=== PATIENT | male | born 1995 | race Caucasian/White ===

== ENCOUNTER 2017-04-05 17:07 | Emergency (ER) | payer BC ==
[~2017-04-05] VITALS: Ht 180.3 cm; Wt 91.1 kg
[~2017-04-05 17:07] MED LIST: ALBUAER2 INH; IBUP-1459 PO
[2017-04-05 17:09] VITALS: TEMP 36.7; Ht 180.3 cm; Wt 91.1 kg
[2017-04-05] MEDS ORDERED: PRVHFAIN INH (17:24)
--- NOTE | 2017-04-05 17:36 | EMERGENCY ROOM VISIT NOTE ---
History First contact with patient: 17:16 Chief Complaint: BITE Stated Complaint: SPIDER BITE, RT ARM SWELLED/PAIN History of Present Illness The patient is a 21 year old male who presents to the Emergency Room with complaints of right forearm redness and swelling that he noticed yesterday. He thinks that he may have been bitten by something. The patient was working in [place] over the last several days. He is unsure of what might have bit him. The redness and swelling have been increasing. It is associated with significant pain. He denies any fever or chills. His tetanus shot is up-to- date. Review of Systems 10 system review performed and negative unless noted in HPI or below Past Medical/Surgical History Otherwise healthy Social History Smoking Status: Current Every Day Smoker Marital Status: in relationship Occupation Status: employed Current/Historical Medications Scheduled Cephalexin (Keflex), 1 CAP PO QID Sulfa/Trimethoprim (Bactrim Ds 800MG/160MG), 1 TAB PO BID Scheduled PRN Albuterol (Ventolin Hfa), 2 PUFFS INH UD PRN for Asthma Symptoms Physical Exam Vital Signs Date Time Temp Pulse Resp B/P (MAP) Pulse Ox O2 Delivery O2 Flow Rate FiO2 04/05/17 17:09 36.7 73 16 109/64 98 Room Air Physical Exam VITALS: Vitals are noted on the nurse's note and reviewed by myself. Vital signs stable. GENERAL: 21-year-old male, in no acute distress, nondiaphoretic, well-developed well-nourished. SKIN: Approximately 7 x 7 cm circular area of erythema and induration noted to the volar aspect of the right forearm. No centralized fluctuance noted. No foreign body noted. There is a very small, 1 mm, centralized pustule in the middle of the redness. Tenderness to touch noted. No erythematous streaking up the arm. HEAD: Normocephalic atraumatic. NECK: No JVD. MUSCULOSKELETAL: Strength 5/5 throughout. NEURO: Patient was alert and oriented to person place and time. Normal sensation to touch. No focal neurological deficits. Medical Decision & Procedures ER Provider Diagnostic Interpretation: Ultrasound IMPRESSION: 1. Moderate soft tissue edema throughout the forearm suggests cellulitis with small irregular hypoechoic 0.5 cm collection suggesting phlegmon without well-defined drainable abscess identified at this time. 2. No echogenic foreign body identified. Laboratory Results 04/05/17 17:45 Red Blood Count 5.23, Mean Corpuscular Volume 79.7, Mean Corpuscular Hemoglobin 26.2, Mean Corpuscular Hemoglobin Concent 32.9, Mean Platelet Volume 10.4, Neutrophils (%) (Auto) 64.7, Lymphocytes (%) (Auto) 22.6, Monocytes (%) (Auto) 9.5, Eosinophils (%) (Auto) 2.7, Basophils (%) (Auto) 0.4, Neutrophils # (Auto) 4.99, Lymphocytes # (Auto) 1.74, Monocytes # (Auto) 0.73, Eosinophils # (Auto) 0.21, Basophils # (Auto) 0.03 04/05/17 17:45 Test 04/05/17 17:45 White Blood Count 7.71 K/uL (4.8-10.8) Red Blood Count 5.23 M/uL (4.7-6.1) Hemoglobin 13.7 g/dL (14.0-18.0) Hematocrit 41.7 % (42-52) Mean Corpuscular Volume 79.7 fL (80-100) Mean Corpuscular Hemoglobin 26.2 pg (25-34) Mean Corpuscular Hemoglobin Concent 32.9 g/dl (32-36) Platelet Count 205 K/uL (130-400) Mean Platelet Volume 10.4 fL (7.4-10.4) Neutrophils (%) (Auto) 64.7 % Lymphocytes (%) (Auto) 22.6 % Monocytes (%) (Auto) 9.5 % Eosinophils (%) (Auto) 2.7 % Basophils (%) (Auto) 0.4 % Neutrophils # (Auto) 4.99 K/uL (1.4-6.5) Lymphocytes # (Auto) 1.74 K/uL (1.2-3.4) Monocytes # (Auto) 0.73 K/uL (0.11-0.59) Eosinophils # (Auto) 0.21 K/uL (0-0.5) Basophils # (Auto) 0.03 K/uL (0-0.2) RDW Standard Deviation 38.9 fL (36.4-46.3) RDW Coefficient of Variation 13.5 % (11.5-14.5) Immature Granulocyte % (Auto) 0.1 % Immature Granulocyte # (Auto) 0.01 K/uL (0.00-0.02) Anion Gap 5.0 mmol/L (3-11) Est Creatinine Clear Calc Drug Dose 165.8 ml/min Estimated GFR () 147.5 Estimated GFR (Non- 127.3 BUN/Creatinine Ratio 9.9 (10-20) Calcium Level 8.9 mg/dl (8.5-10.1) Medications Administered Medications (Trade) Dose Ordered Sig/Maureen Route Start Time Stop Time Status Last Admin Dose Admin Ibuprofen (Motrin Tab) 600 mg ONE STAT PO 04/05/17 17:57 04/05/17 17:58 DC 04/05/17 18:04 600 MG ED Course Patient was seen and examined Vital signs including blood pressure were reviewed medications list was verified with patient Labs were obtained, and a saline lock was established Imaging was performed and reviewed The patient was given 1 g of Rocephin IV The findings were discussed with the patient. He voiced understanding. I reviewed discharge instructions the patient. They voiced understanding and had no further questions. Medical Decision Differential diagnosis: Insect bite, cellulitis, abscess, foreign body This patient is a 21-year-old male that presents to the emergency department with concerns about a possible spider bite. The patient did not actually see the insect. He did have significant erythema and edema on exam. I ordered an ultrasound, which confirmed that there is no drainable abscess or foreign body. It does appear that he has a significant cellulitis. The patient was given IV antibiotics here. He was given a seven-day course of antibiotics. He was instructed to follow-up with his primary care physician in 2 days for a recheck. He was also instructed to return here with any new or worsening symptoms. This chart was completed in part utilizing [employer] Speech Voice Recognition software. Attempts were made to minimize the grammatical errors, random word insertions, pronoun errors and incomplete sentences. Any formal questions or concerns about the content, text or information contained within the body of this dictation should be directly addressed to the provider for clarification. Impression Primary Impression: Cellulitis Departure Information Dispostion Home / Self-Care Condition GOOD Prescriptions Sulfa/Trimethoprim (Bactrim Ds 800MG/160MG) Tab 1 TAB PO BID for 7 Days, #14 TAB Prov: Joan Ramos, MERA 04/05/17 Cephalexin (KEFLEX) 250 Mg Cap 1 CAP PO QID for 7 Days, #28 CAP Prov: Joan Ramos PA-C 04/05/17 Referrals No Doctor, Assigned (PCP) Patient Instructions My [facility] Additional Instructions You were evaluated in the hospital for redness and swelling of the arm. This infection is "cellulitis. Please apply warm compresses 3 times daily to the affected area Please finish the entire course of antibiotics Please have the wound reevaluated in 2 days. Return to the emergency department if you have any of the following symptoms: -Fever -Increased redness or swelling -Worsening pain
[2017-04-05 17:56] LABS: BASO % 0.4 %; BASO ABS # 0.03 K/uL (0-0.2); COMPLETE YES; EOS % 2.7 %; HEMATOCRIT 41.7 % (42-52); IG% 0.1 %; LYMPH % 22.6 %; LYMPH ABS # 1.74 K/uL (1.2-3.4); MEAN CELL VOLUME 79.7 fL (80-100); MEAN CORPUSCULAR HEMOGLOBIN 26.2 pg (25-34); MEAN CORPUSCULAR HGB CONC 32.9 g/dl (32-36); MEAN PLATELET VOLUME 10.4 fL (7.4-10.4); MONO % 9.5 %; NEUT % 64.7 %; PLATELET COUNT 205 K/uL (130-400); RED BLOOD COUNT 5.23 M/uL (4.7-6.1); WHITE BLOOD COUNT 7.71 K/uL (4.8-10.8)
[2017-04-05] MEDS ORDERED: CEPH-570 PO (17:56)
[2017-04-05] MEDS ORDERED: SULF800T23 PO (17:56)
[2017-04-05] MEDS ORDERED: IBUPROFEN 600 MG TAB PO STA (17:57)
[2017-04-05 18:13] LABS: BUN/CREATININE RATIO 9.9 (10-20); CALCIUM 8.9 mg/dl (8.5-10.1); CREATININE 0.82 mg/dl (0.60-1.40); POTASSIUM 3.5 mmol/L (3.5-5.1)
--- NOTE | 2017-04-05 18:48 | DIAGNOSTIC IMAGING REPORT ---
R EXTREMITY NONVASCULAR LIMITED HISTORY: 21 years-old Male R forearm swelling/erythema r/o abscess, FB acute right forearm swelling with concern for abscess or foreign body COMPARISON: None available TECHNIQUE: Multiple real-time sonographic images of the right forearm were obtained assessing grayscale appearance and color flow FINDINGS: There is moderate soft tissue edema throughout the forearm which is probably subcutaneous with associated skin thickening suggesting cellulitis. There is a small irregular complex hypoechoic focus of the right forearm at the area of concern, 0.5 x 0.2 x 0.4 cm suggesting focal phlegmon without well-defined chao. No definite echogenic foreign body identified. IMPRESSION: 1. Moderate soft tissue edema throughout the forearm suggests cellulitis with small irregular hypoechoic 0.5 cm collection suggesting phlegmon without well-defined drainable abscess identified at this time. 2. No echogenic foreign body identified. The above report was generated using voice recognition software. It may contain grammatical, syntax or spelling errors. Electronically signed by: Wojciech Sung M.D. 04/05/2017 6:47 PM Dictated Date/Time: 04/05/2017 6:44 PM
[2017-04-05] MEDS ORDERED: CEFTRIAXONE SOD INJ 1 GM ADDVIAL IV STA (18:52)
[2017-04-05 20:04] VITALS: BP 114/64; PULSE 73; O2SAT 97
== END 2017-04-05 20:05 | disposition home or self-care (01) ==
LOC: C.EDB 17:09 → C.EDD 20:05
DX: T63.301A Toxic effect of unspecified spider venom, accidental (unintentional), initial encounter (principal); L03.113 Cellulitis of right upper limb; W57.XXXA Bitten or stung by nonvenomous insect and other nonvenomous arthropods, initial encounter; F17.210 Nicotine dependence, cigarettes, uncomplicated

== ENCOUNTER 2017-04-15 20:03 | Emergency (ER) | payer BC ==
[~2017-04-15] VITALS: Ht 177.8 cm; Wt 91.8 kg
[~2017-04-15 20:03] MED LIST changes: -ALBUAER2 INH; +CEPH-570 PO; -IBUP-1459 PO; +PRVHFAIN INH
[2017-04-15 20:18] VITALS: TEMP 36.9; Ht 177.8 cm; Wt 91.8 kg
[2017-04-15] MEDS ORDERED: LIDOCAINE/EPINEPHRINE 1% 20 ML VIAL INFIL STA (21:10)
[2017-04-15] MEDS ORDERED: CEPH500C PO (22:40)
[2017-04-15] MEDS ORDERED: SULF800T23 PO (22:40)
--- NOTE | 2017-04-15 22:41 | EMERGENCY ROOM VISIT NOTE ---
History First contact with patient: 20:51 Chief Complaint: WOUND INFECTION Stated Complaint: CYST LIKE BUMPS ON RT ARM Nursing Triage Summary: small white pustuals on the right upper arm History of Present Illness The patient is a 21 year old male who presents to the Emergency Room via private vehicle with complaints of "cystlike bumps on right arm". The patient states that for the past 2 weeks, he has had small red dots on his arm. He notes that one was quite large, and he was seen here and given Keflex and Bactrim. It then drained spontaneously. Over the past few days he has noted that the red areas have become more numerous, and or enlarging. He notes pain in this region. There are near the right antecubital region. He denies any fevers or chills. Tetanus is up-to-date. Review of Systems A complete 6-point Review of Systems was discussed with the patient, with pertinent positives and negatives listed in the History of Present Illness. All remaining Review of Systems questions can be considered negative unless otherwise specified. Past Medical/Surgical History Cellulitis Family History No pertinent Social History Smoking Status: Current Every Day Smoker Marital Status: in relationship Occupation Status: employed Patient is employed. Physical Exam Vital Signs Date Time Temp Pulse Resp B/P (MAP) Pulse Ox O2 Delivery O2 Flow Rate FiO2 04/15/17 22:51 75 20 104/67 97 04/15/17 20:18 36.9 83 20 114/75 95 Room Air Physical Exam VITAL SIGNS - Vital signs and nursing notes were reviewed. Stable. Afebrile. GENERAL -21-year-old male appearing his stated age who is in no acute distress. Communicates well with provider and answers questions appropriately. SKIN - on the patient's right ventral forearm and distal bicep region there are 4 erythematous regions that come to a head. These are concerning for small abscesses. They're indurated. There is small erythema around these regions. There is no lymphogenic streaking. EXTREMITIES - No clubbing or peripheral cyanosis. No pretibial edema present. He is neurovascularly intact in the right upper extremity. +5/5 strength noted in UE/LE bilaterally. Medical Decision & Procedures Laboratory Results Date/Time Source Procedure Growth Status 04/15/17 22:35 Incision Site Arm , Right Lower Gram Stain - Final Complete 04/15/17 22:35 Wound Culture - Final Staphylococcus Aureus Complete Medical Decision Patient was seen and evaluated as above. Previous visit was reviewed. He presents to us today with small little cellulitic regions on the patient's right ventral forearm. He denies IV drug use. Previous visit was reviewed and notes that he did have cellulitis recently, but this appears to be different. I do not believe he failed outpatient management. He did try to squeeze these regions I believe lending to the irritation/induration. Consent was obtained, and decision was made to attempt to drain these. One mL of 1% buffered lidocaine with epinephrine was utilized to anesthetize the 4 regions. These are all subcentimeter, with the superior one being about 2 cm in diameter. No fluid was drained from any of them, they appear to be indurated. I suspect again this induration is from him trying to squeeze the wounds. This appears to be small folliculitis/cellulitis. No evidence of drainable abscess after attempt. These regions were cleansed with normal saline and dressed with a bacitracin dressing. He notes he did not take the Keflex Bactrim to completion last time, and has about 7 days left. He is to take this medication and follow with a medical personnel if this worsens, or return here. He was educated upon management, educated upon worrisome symptoms which to return, had questions answered prior to discharge, and was discharged home in good condition. Culture pending. In evaluation treatment this patient following differential diagnoses radiographs: Cellulitis, folliculitis, abscess, among others. I personally spoke with the patient on 04/18/2017 after the culture grew out MRSA. He was informed by both the pharmacist and myself that he is to seek attention at the nearest medical facility as it was identified that he was experiencing worsening of his symptoms. At this time he notes that he will wait until he returns here on Friday because he is out of state working. I informed her this could be life-threatening, but he notes he does still have 4 days left of the Bactrim. This will be enough until he comes back. Benefit versus risk of further prescription writing was discussed, but the decision was made at this time to allow him to continue this, and follow-up back here. It was very clear there are conversation that this could be life-threatening, and that he should seek treatment tonight at a medical facility. He was educated upon management, had questions answered prior to finishing the phone call, and the call was ended. Impression Primary Impression: Cellulitis Departure Information Dispostion Home / Self-Care Condition GOOD Referrals No Doctor, Assigned (PCP) Patient Instructions My [facility] Additional Instructions You were seen in the emergency Department for an infection on your right arm. There was no evidence of abscess or anything that needed to be drained after attempts. Please take the Keflex and Bactrim's 7 days. Keflex is 500 mg every 6 hours. Bactrim is 1 tablet every 12 hours. Please follow-up for recheck of this in the next few days with family doctor, or any nearby Medical Center. Please return with any new/concerning symptoms. Any questions please [phone]
[2017-04-15 22:51] VITALS: BP 104/67; PULSE 75; O2SAT 97
--- NOTE | 2017-04-17 17:46 | Pharmacy Progress Note ---
ED Pharmacist Culture FollowUp Date of Service: Apr 17, 2017. MRSA isolated from wound culture. Spoke waleska Hubbard who noted that upon further review, patient was only prescribed a 7 day course of Bactrim initially and therefore because he took about 3 days worth, he would have an insufficient quantity remaining to adequately treat the current infection. Plan was to call in an additional 7 days of Bactrim to complete a minimum of a 10 day course. Prior to calling Moses, his Pamela called and requested the results of Moses's culture and wanted to know if it was MRSA. She noted that she had her 's permission to discuss his medical information. She is listed as next of kin. Confirmed with Stevie that she/we could discuss her 's medical information. I spoke first with Pamela for 30 minutes. She noted Moses is in [employer] and we would not be able to reach him (he cannot answer his phone on the job). She noted that Moses had called her today and asked her if it was expected for the spots on his arm to turn black. She could not describe the appearance further as she has not seen them. I asked her if Moses noted any other changes. She said that some of the spots were better, but at least one is getting bigger. Spoke extensively about the importance of having Moses see a provider immediately as we cannot assess the changes but they are concerning for worsening infection despite what should be adequate oral therapy with Bactrim. Emphasized the potential severity of infection multiple times. Pamela noted that her is "stubborn" and that she was not sure if he would see a provider tonight despite her encouragement. Emphasized again the importance of being seen immediately as infections with MRSA have the potential to be severe/life threatening if not adequately treated. Asked her to call Moses, inform him of MRSA result, encourage him to see a provider tonight, and to ask him to call us as soon as possible. Provided ED phone number. I spoke with Pamela again a little while later, this time for 20 minutes. She noted she had spoken with Moses. She said she told Moses of positive MRSA result, that we strongly encouraged him to be seen by a provider tonight, and that we would like him to call us [facility] and that she gave him the ED phone number. She noted she tried to "scare" him or else he is unlikely to see a provider. Per Pamela, Moses noted that he will be back in this area tomorrow and that he may consider coming back either tomorrow or the next day. She said he will not likely call us until 7-8 pm when he returns to his hotel and wasn't sure if he would call at all. Again, I emphasized the potential severity of an inadequately treated MRSA infection, and noted we would do our best to convince him to be seen. Of note, Pamela also said that Moses denied feeling feverish. I discussed all of the above with Stevie who will be here in the ED [place]. If Moses calls, Stevie plans to speak with him. If Moses does not call, Stevie plans to call Moses gilman. At this time, no further prescription will be provided as it would be better for Moses to be re-evaluated.
== END 2017-04-15 22:52 | disposition home or self-care (01) ==
LOC: C.EDB 20:05 → C.EDD 22:52
DX: L03.113 Cellulitis of right upper limb (principal); F17.200 Nicotine dependence, unspecified, uncomplicated

== ENCOUNTER 2017-04-19 11:29 | Emergency (ER) | payer BC ==
[~2017-04-19] VITALS: Ht 177.8 cm; Wt 90.4 kg
[2017-04-19 11:36] VITALS: TEMP 36.7; Ht 177.8 cm; Wt 90.4 kg
[2017-04-19] MEDS ORDERED: CLIN300C2 PO (12:16)
[2017-04-19] MEDS ORDERED: CHLO4LIQ TOP (12:31)
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
[2017-04-19] MEDS ORDERED: SULF800T23 PO (12:38)
[2017-04-19 12:41] VITALS: BP 128/86; PULSE 82; O2SAT 98
== END 2017-04-19 12:42 | disposition home or self-care (01) ==
LOC: C.EDB 11:30 → C.EDC 12:42
DX: A49.02 Methicillin resistant Staphylococcus aureus infection, unspecified site (principal); L02.413 Cutaneous abscess of right upper limb; Z87.828 Personal history of other (healed) physical injury and trauma; F17.200 Nicotine dependence, unspecified, uncomplicated